=== PATIENT | female | born 1965 | race Caucasian/White ===

== ENCOUNTER → 2020-10-24 | Outpatient (CLI) | payer OTHER ==
[2020-10-24 16:19] LABS: WHITE BLOOD COUNT 5.3 K/UL (4.5-11.0)
[2020-10-24 17:04] LABS: BUN/CREATININE RATIO 33 (0-10)
[2020-10-26 09:14] LABS: CREATININE, URINE 43.9 mg/dL (Not Estab.); MICROALB/CREAT RATIO <7 (0-29)
== END ==
LOC: LAB 15:31
PROVIDERS: Nurse Practitioner Family
DX: E11.9 Type 2 diabetes mellitus without complications (principal); R03.0 Elevated blood-pressure reading, without diagnosis of hypertension
CPT/HCPCS: 36415; 80053; 80061; 80069; 81001; 82043; 82570; 82607; 82746; 83036; 83970; 84100; 84156; 84443; 84550; 85027